=== PATIENT | male | born 1965 | race African-American/Black ===

== ENCOUNTER 2019-04-20 13:54 | Emergency (ER) | payer SELFPAY ==
[2019-04-20 14:05] VITALS: TEMP 98.6; BMI 27.4
--- NOTE | 2019-04-20 14:19 | PDOC ---
History of Present Illness - General Chief Complaint: Diarrhea Stated Complaint: ABD PAIN w/DIARRHEA Time Seen by Provider: 04/20/19 14:18 - History of Present Illness Initial Comments: 04/20/19 15:06 53 year old man with no pmhx who presents with sharp intermittent lower abdominal pain that comes and goes since onset last night while at [employer]. The patient believes he had diarrhea prior to abdominal pain but notes since his pain onset he has had watery diarrhea. He denies any abdominal surgeries, denies testicular pain, dysuria, hematuria, ROS GENERAL/CONSTITUTIONAL: No fever or chills. No weakness. HEAD, EYES, EARS, NOSE AND THROAT: No change in vision. No ear pain or discharge. No sore throat. CARDIOVASCULAR: No chest pain or shortness of breath RESPIRATORY: No cough, wheezing, or hemoptysis. GASTROINTESTINAL: No nausea, vomiting, diarrhea or constipation. GENITOURINARY: No dysuria, frequency, or change in urination. MUSCULOSKELETAL: No joint or muscle swelling or pain. No neck or back pain. SKIN: No rash NEUROLOGIC: No headache, vertigo, loss of consciousness, or change in strength/ sensation. ENDOCRINE: No increased thirst. No abnormal weight change HEMATOLOGIC/LYMPHATIC: No anemia, easy bleeding, or history of blood clots. ALLERGIC/IMMUNOLOGIC: No hives or skin allergy. PE GENERAL: Awake, alert, and fully oriented, in no acute distress HEAD: No signs of trauma, normocephalic, atraumatic EYES: PERRLA, EOMI, sclera anicteric, conjunctiva clear ENT: Auricles normal inspection, hearing grossly normal, nares patent, oropharynx clear without exudates. Moist mucosa NECK: Normal ROM, supple, no lymphadenopathy, JVD, or masses LUNGS: No distress, speaks full sentences, clear to auscultation bilaterally HEART: Regular rate and rhythm, normal S1 and S2, no murmurs, rubs or gallops, peripheral pulses normal and equal bilaterally. ABDOMEN: Soft, nontender, normoactive bowel sounds. No guarding, no rebound. No masses EXTREMITIES : Normal inspection, Normal range of motion, no edema. No clubbing or cyanosis. NEUROLOGICAL: Cranial nerves II through XII grossly intact. Normal speech, normal gait, no focal sensorimotor deficits SKIN: Warm, Dry, normal turgor, no rashes or lesions noted GENITAL: uncircumcised, vertical lie of the testes, noinguinal hernias, nontender testicular exam MDM DDX including but not limited to: hernia ED Course: Jill Parson PGY2 Emergency Medicine 04/20/19 17:58 Past History - Past Medical History Allergies/Adverse Reactions: Allergies Allergy/AdvReac Type Severity Reaction Status Date / Time No Known Allergies Allergy Verified 04/20/19 14:01 Home Medications: Ambulatory Orders Ciprofloxacin HCl [Cipro] 500 mg PO BID 5 Days #10 tablet 04/20/19 metroNIDAZOLE [Flagyl -] 500 mg PO DAILY #7 tablet 04/20/19 COPD: No Disorders: No Hypercholesterolemia: No - Surgical History GI Surgery: No - Immunization History Immunization Up to Date: No - Psycho Social/Smoking Cessation Hx Smoking History: Never smoked Have you smoked in the past 12 months: No Information on smoking cessation initiated: No Hx Alcohol Use: No Drug/Substance Use Hx: No *Physical Exam - Vital Signs Last Vital Signs Temp Pulse Resp BP Pulse Ox 98.6 F 88 18 152/90 100 04/20/19 14:01 04/20/19 14:01 04/20/19 14:01 04/20/19 14:01 04/20/19 14:01 ED Treatment Course - LABORATORY CBC & Chemistry Diagram: 04/20/19 14:54 04/20/19 14:54 Discharge - Discharge Information Problems reviewed: Yes Clinical Impression/Diagnosis: Colitis Condition: Stable - Admission No - Additional Discharge Information Prescriptions: Ciprofloxacin HCl [Cipro] 500 mg PO BID 5 Days #10 tablet metroNIDAZOLE [Flagyl -] 500 mg PO DAILY #7 tablet - Follow up/Referral Referrals: Gerhard Stacy DO [Staff Physician] - - Patient Discharge Instructions Patient Printed Discharge Instructions: DI for Colitis Additional Instructions: You were seen in the ER for diarrhea and abdominal pain You had colitis, which is inflammation of your colon, found on your CT You were given a course of antibiotics You have a referral to GI and should follow up within 1 week. Return to the ER if you develop fevers, worsening abdominal pain, blood in the diarrhea or any other concerning symptoms. - Post Discharge Activity Work/Back to School Note: Back to Work
[2019-04-20 15:03] LABS: BASO % 0.5 % (0-2.0); HEMATOCRIT 48.4 % (35.4-49); HEMOGLOBIN 16.1 GM/dL (11.7-16.9); LYMPH % 14.8 % (8-40); MCH 30.9 pg (25.7-33.7); MCHC 33.3 g/dl (32.0-35.9); MEAN CELL VOLUME 92.7 fl (80-96); MEAN PLT VOLUME 8.7 fl (7.5-11.1); MONO % 8.2 % (3.8-10.2); NEUT % 76.5 % (42.8-82.8); PLATELET COUNT 253 K/MM3 (134-434); RBC 5.22 M/mm3 (4.00-5.60); RDW 13.4 % (11.9-15.9); WHITE BLOOD COUNT 5.6 K/mm3 (4.0-10.0)
[2019-04-20] MEDS ORDERED: SODIUM CHLORIDE 1,000 ML IV SCH (15:15)
--- NOTE | 2019-04-20 15:22 | PDOC ---
Documentation entered by Rubi Andino SCRIBE, acting as scribe for Sandra Roman MD. Sandra Roman MD: This documentation has been prepared by the scribe, Rubi Andino SCRIBE, under my direction and personally reviewed by me in its entirety. I confirm that the documentation accurately reflects all work, treatment, procedures, and medical decision making performed by me. Attending Attestation - Resident Resident Name: Jill Parson - HPI HPI: 04/20/19 16:16 pt presents to the ED complaining of profuse watery diarrhea and intermitttent sharp flank pain that started yesterday. Denies fever, nausea and vomiting or urinary complaints. Denies prior history of similar pain. - Physicial Exam PE: 04/20/19 16:28 agree with resident exam. PAtient is alert and oriented and in no acute distress. Abdomen is soft, non tender, non distended without guarding or rebound. no CVA tenderness. - Medical Decision Making 04/20/19 16:29 Pt presents to the ED complaining of diarrhea and LLQ pain. DIfferential includes gastroenteritis, diverticulitis, renal stone, unlikely AAA or other aortic pathology.
[2019-04-20 15:32] LABS: ALBUMIN 3.9 g/dl (3.4-5.0); BILIRUBIN,TOTAL 0.6 mg/dL (0.2-1); BLOOD UREA NITROGEN 12.4 mg/dL (7-18); CALCIUM 8.9 mg/dL (8.5-10.1); CREATININE 1.1 mg/dL (0.55-1.3); POTASSIUM 5.4 mmol/L (3.5-5.1); TOT PROT 7.9 g/dl (6.4-8.2)
[2019-04-20 16:09] LABS: EPI CELLS 4.3 /HPF (0-5/HPF); HYALINE CASTS 19 /lpf (0-8); PH,URINE 5.5 (5.0-8.0); URINE APPEARANCE CLEAR; URINE BACTERIA 41.6 /hpf (NEGATIVE); URINE BILIRUBIN NEGATIVE (NEGATIVE); URINE COLOR DK YELLOW; URINE GLUCOSE (UA) NEGATIVE (NEGATIVE); URINE KETONE 1+ (NEGATIVE); URINE LEUK ESTERASE NEGATIVE (NEGATIVE); URINE NITRITE NEGATIVE (NEGATIVE); URINE PROTEIN 1+ (NEGATIVE); URINE RBC 6 /hpf (0-4); URINE UROBILINOGEN 0.2 mg/dL (0.2-1.0); URINE WBC 8 /hpf (0-5)
[2019-04-20 18:28] VITALS: BP 129/84; PULSE 85
[2019-04-20] MEDS ORDERED: metroNIDAZOLE 500 MG TABLET PO ONE (18:43)
[2019-04-20] MEDS ORDERED: CIPROFLOXACIN 500 MG TABLET (RESTRICTED TO ID) PO ONE (18:44)
[2019-04-20] MEDS ORDERED: metroNIDAZOLE 250 MG TABLET ONE (19:04)
--- NOTE | 2019-04-21 11:52 | EKG ---
Test Reason : Blood Pressure : / mmHG Vent. Rate : 080 BPM Atrial Rate : 080 BPM P-R Int : 176 ms QRS Dur : 086 ms QT Int : 374 ms P-R-T Axes : 067 044 032 degrees QTc Int : 431 ms NORMAL SINUS RHYTHM POSSIBLE LEFT ATRIAL ENLARGEMENT LEFT VENTRICULAR HYPERTROPHY ABNORMAL ECG NO PREVIOUS ECGS AVAILABLE Confirmed by KEISHA VIDAL MD ([id number]) on 04/21/2019 11:52:12 AM Referred By: Confirmed By:KEISHA VIDAL MD
== END 2019-04-20 19:18 | disposition home or self-care (01) ==
LOC: JER 13:54
DX: K52.9 Noninfective gastroenteritis and colitis, unspecified (principal)
CPT/HCPCS: 36415; 74177-TC; 80053; 81003; 83690; 85025; 87086; 93005; 93010; 99283-25; J7030; Q9967